=== PATIENT | female | born 1980 | race American Indian/Alaskan Native ===

== ENCOUNTER 2023-09-04 16:13 | Inpatient (IN) | payer OTHER ==
[2023-09-04 17:52] VITALS: BMI 29.7
[2023-09-04] MEDS ORDERED: BENZONATATE 200 MG CAPSULE PO PRN (22:12)
[2023-09-04] MEDS ORDERED: ACETAMINOPHEN 325 MG TABLET (FP) PO PRN (22:12)
[2023-09-04] MEDS ORDERED: POLYETHYLENE GLYCOL (HEALTHYLAX) 3350 17 GM PACKET PO PRN (22:12)
[2023-09-04] MEDS ORDERED: LOPERAMIDE HCL 2 MG CAPSULE PO PRN (22:12)
[2023-09-04] MEDS ORDERED: ONDANSETRON *ODT* 4 MG TABLET SL PRN (22:12)
[2023-09-04] MEDS ORDERED: NICOTINE POLACRILEX 2 MG GUM BUC PRN (22:12)
[2023-09-04] MEDS ORDERED: IBUPROFEN 400 MG TABLET (FP) PO PRN (22:12)
[2023-09-04] MEDS ORDERED: DICYCLOMINE HCL 10 MG CAPSULE PO PRN (22:12)
[2023-09-04] MEDS ORDERED: BISMUTH SUBSALICYLATE 524 MG/30 ML PO PRN (22:12)
[2023-09-04] MEDS ORDERED: BENZOCAINE/MENTHOL (CHLORASEPTIC ) LOZENGE MM PRN (22:12)
[2023-09-04] MEDS ORDERED: MAGNESIUM HYDROX 2400MG/30ML ORAL SUSPENSION 30 ML CUP PO PRN (22:12)
[2023-09-04] MEDS ORDERED: NALOXONE HCL (KLOXXADO) 8 MG SPRAY NS PRN (22:12)
[2023-09-04] MEDS ORDERED: MAG HYDROX/AL HYDROX/SIMETH 30 ML UNIT-DOSE CUP PO PRN (22:12)
[2023-09-04] MEDS ORDERED: NALOXONE HCL 0.4 MG/ML VIAL IM PRN (22:12)
[2023-09-04] MEDS ORDERED: P-EPHED 60MG/TRIPROLIDI 2.5MG TABLET PO PRN (22:12)
[2023-09-04] MEDS ORDERED: guaiFENesin 600 MG TABLET.ER (FP) PO PRN (22:12)
[2023-09-04] MEDS ORDERED: diazePAM 5 MG TABLET PO PRN (22:14)
[2023-09-04] MEDS ORDERED: cloNIDine HCL 0.1 MG TABLET ONE (22:27)
[2023-09-04] MEDS ORDERED: diazePAM 5 MG TABLET ONE (22:27)
[2023-09-04] MEDS ORDERED: IBUPROFEN 600 MG TABLET (FP) PO ONE (22:28)
[2023-09-04] MEDS: cloNIDine HCL 0.1 MG TABLET PO ONE (22:55)
[2023-09-04] MEDS: IBUPROFEN 600 MG TABLET (FP) PO PRN (22:56)
[2023-09-04] MEDS: diazePAM 5 MG TABLET PO SCH (23:02)
[2023-09-05] MEDS: ALBUTEROL SO4 0.083% IH SOL 2.5 MG/3 ML VIAL.NEB. NEB PRN (01:51)
[2023-09-05] MEDS: diazePAM 5 MG TABLET PO SCH (05:54)
[2023-09-05] MEDS: hydrOXYzine PAMOATE 25 MG CAPSULE (FP) PO PRN (08:09)
[2023-09-05] MEDS: METHOCARBAMOL 500 MG TABLET PO PRN (08:10)
[2023-09-05] MEDS: PRENATAL VITAMINS W/ FOLIC ACID TABLET (FP) PO SCH (10:40)
[2023-09-05] MEDS: amLODIPine BESYLATE 5 MG TABLET (FP) PO SCH (10:40)
[2023-09-05] MEDS: methaDONE HCL 40 MG DISPERSABLE TABLET PO ONE (10:40)
[2023-09-05 11:54] LABS: HEMATOCRIT 34.7 % (32.4-45.2); HEMOGLOBIN 10.9 GM/dL (10.7-15.3); MCH 22.5 pg (25.7-33.7); MCHC 31.3 g/dl (32.0-36.0); MEAN PLT VOLUME 9.1 fl (7.5-11.1); PLATELET COUNT 313 10^3/uL (134-434); RBC 4.83 M/mm3 (3.60-5.2); RDW 16.6 % (11.6-15.6); WHITE BLOOD COUNT 7.5 K/mm3 (4.0-10.0)
[2023-09-05 11:58] LABS: CHLORIDE 99 mmol/L (98-107); POTASSIUM 3.3 mmol/L (3.5-5.1); SODIUM 136 mmol/L (136-145)
[2023-09-05 12:00] LABS: BLOOD UREA NITROGEN 4.5 mg/dL (7-18); CALCIUM 9.4 mg/dL (8.5-10.1); GLUCOSE,RANDOM 105 mg/dL (74-106)
[2023-09-05 12:01] LABS: ALBUMIN 3.7 g/dl (3.4-5.0); ANION GAP 6 mmol/L (4-13); CO2 31 mmol/L (21-32)
[2023-09-05 12:04] LABS: CREATININE 0.9 mg/dL (0.55-1.3); SGOT/AST 40 U/L (15-37); SGPT/ALT 30 U/L (13-61)
[2023-09-05 12:05] LABS: BILIRUBIN,TOTAL 0.5 mg/dL (0.2-1)
[2023-09-05 12:06] LABS: ALK PHOS 53 U/L (45-117); TOT PROT 7.8 g/dl (6.4-8.2)
[2023-09-05] MEDS: cloNIDine HCL 0.1 MG TABLET PO PRN (15:37)
[2023-09-05] MEDS: MELATONIN 5 MG TABLETS PO SCH (22:16)
[2023-09-05] MEDS: THIAMINE 100 MG TABLET PO SCH (22:16)
[2023-09-06] MEDS: diazePAM 5 MG TABLET PO ONE (05:20)
[2023-09-06] MEDS: methaDONE HCL 40 MG DISPERSABLE TABLET PO SCH (05:20)
[2023-09-06] MEDS: diazePAM 5 MG TABLET PO SCH (13:44)
[2023-09-06] MEDS: POTASSIUM CHLORIDE ORAL LIQUID 20 MEQ/15 ML PO ONE ×2 (15:48→22:16)
[2023-09-07] MEDS: diazePAM 5 MG TABLET PO SCH (05:37)
[2023-09-07 14:25] VITALS: RESP 18
[2023-09-07 15:07] LABS: CALCIUM 9.1 mg/dL (8.5-10.1)
[2023-09-07 15:10] LABS: CREATININE 0.8 mg/dL (0.55-1.3)
[2023-09-07 17:07] VITALS: BP 134/78; PULSE 68; TEMP 98
[2023-09-08] MEDS ORDERED: diazePAM 5 MG TABLET PO ONE (06:00)
== END 2023-09-07 18:00 | disposition home or self-care (01) | DRG 773 ==
LOC: YASAS 16:13 → Y6N 23:22
PROVIDERS: ADMIT Allergy & Immunology; ATTEND Surgery
PROC: HZ2ZZZZ Detoxification Services for Substance Abuse Treatment (ICD-10-PCS; principal; 2023-09-04)
DX: F11.23 Opioid dependence with withdrawal (principal); F10.230 Alcohol dependence with withdrawal, uncomplicated; F12.20 Cannabis dependence, uncomplicated; F15.20 Other stimulant dependence, uncomplicated; F31.9 Bipolar disorder, unspecified; F19.280 Other psychoactive substance dependence with psychoactive substance-induced anxiety disorder; F19.282 Other psychoactive substance dependence with psychoactive substance-induced sleep disorder; E87.6 Hypokalemia; I10 Essential (primary) hypertension; J45.909 Unspecified asthma, uncomplicated; Z87.891 Personal history of nicotine dependence; Z28.310 Unvaccinated for COVID-19; Z28.9 Immunization not carried out for unspecified reason
CPT/HCPCS: 36415; 80048; 80053; 80305; 80307; 81025; 85027; 86780; 93005; 93010; 94640

== ENCOUNTER 2023-10-15 15:17 | Inpatient (IN) | payer OTHER ==
[2023-10-15 15:55] VITALS: BMI 29.3
[2023-10-15] MEDS ORDERED: NICOTINE POLACRILEX 2 MG GUM BUC PRN (16:20)
[2023-10-15] MEDS ORDERED: P-EPHED 60MG/TRIPROLIDI 2.5MG TABLET PO PRN (16:20)
[2023-10-15] MEDS ORDERED: MAG HYDROX/AL HYDROX/SIMETH 30 ML UNIT-DOSE CUP PO PRN (16:20)
[2023-10-15] MEDS ORDERED: BENZOCAINE/MENTHOL (CHLORASEPTIC ) LOZENGE MM PRN (16:20)
[2023-10-15] MEDS ORDERED: guaiFENesin 600 MG TABLET.ER (FP) PO PRN (16:20)
[2023-10-15] MEDS ORDERED: MAGNESIUM HYDROX 2400MG/30ML ORAL SUSPENSION 30 ML CUP PO PRN (16:20)
[2023-10-15] MEDS ORDERED: LOPERAMIDE HCL 2 MG CAPSULE PO PRN (16:20)
[2023-10-15] MEDS ORDERED: NALOXONE HCL 0.4 MG/ML VIAL IM PRN (16:20)
[2023-10-15] MEDS ORDERED: DOCUSATE SODIUM 100 MG CAPSULE (FP) PO PRN (16:20)
[2023-10-15] MEDS ORDERED: IBUPROFEN 600 MG TABLET (FP) PO PRN (16:20)
[2023-10-15] MEDS ORDERED: NICOTINE POLACRILEX 2 MG LOZENGE BC PRN (16:20)
[2023-10-15] MEDS ORDERED: BENZONATATE 200 MG CAPSULE PO PRN (16:20)
[2023-10-15] MEDS ORDERED: NALOXONE HCL (KLOXXADO) 8 MG SPRAY NS PRN (16:20)
[2023-10-15] MEDS ORDERED: IBUPROFEN 400 MG TABLET (FP) PO PRN (16:20)
[2023-10-15] MEDS ORDERED: POLYETHYLENE GLYCOL (HEALTHYLAX) 3350 17 GM PACKET PO PRN (16:20)
[2023-10-15] MEDS ORDERED: ALBUTEROL SO4 HFA INHALER IH PRN (16:37)
[2023-10-15] MEDS ORDERED: METOPROLOL TARTRATE 25 MG TABLET (FP) ONE (17:34)
[2023-10-15] MEDS: METOPROLOL TARTRATE 25 MG TABLET (FP) PO ONE (17:36)
[2023-10-15] MEDS: hydrOXYzine PAMOATE 25 MG CAPSULE (FP) PO PRN (21:53)
[2023-10-15] MEDS: MELATONIN 5 MG TABLETS PO SCH (21:53)
[2023-10-15] MEDS: ACETAMINOPHEN 325 MG TABLET (FP) PO PRN (21:53)
[2023-10-15] MEDS: THIAMINE 100 MG TABLET PO SCH (21:53)
[2023-10-16] MEDS: FLUTICASONE PROP 0.05% 16 GM NASAL SPRAY NS PRN (00:56)
[2023-10-16] MEDS: methaDONE HCL 40 MG DISPERSABLE TABLET PO SCH (09:19)
[2023-10-16] MEDS: PRENATAL VITAMINS W/ FOLIC ACID TABLET (FP) PO SCH (09:19)
[2023-10-16] MEDS: amLODIPine BESYLATE 2.5 MG TABLET (FP) PO SCH (09:28)
[2023-10-16 09:50] LABS: POTASSIUM 3.7 mmol/L (3.5-5.1)
[2023-10-16 09:54] LABS: ALBUMIN 3.8 g/dl (3.4-5.0)
[2023-10-16 09:57] LABS: CALCIUM 9.9 mg/dL (8.5-10.1)
[2023-10-16 09:58] LABS: BLOOD UREA NITROGEN 4.2 mg/dL (7-18)
[2023-10-16 10:00] LABS: CREATININE 0.8 mg/dL (0.55-1.3)
[2023-10-16 10:01] LABS: HEMATOCRIT 35.8 % (32.4-45.2); HEMOGLOBIN 11.5 GM/dL (10.7-15.3); MCH 22.8 pg (25.7-33.7); MCHC 32.3 g/dl (32.0-36.0); MEAN CELL VOLUME 70.6 fl (80-96); MEAN PLT VOLUME 9.3 fl (7.5-11.1); PLATELET COUNT 349 10^3/uL (134-434); RBC 5.06 M/mm3 (3.60-5.2); RDW 17.9 % (11.6-15.6); TOT PROT 8.4 g/dl (6.4-8.2); WHITE BLOOD COUNT 8.7 K/mm3 (4.0-10.0)
[2023-10-16 10:19] LABS: BILIRUBIN,TOTAL 0.3 mg/dL (0.2-1)
[2023-10-16] MEDS: amLODIPine BESYLATE 2.5 MG TABLET (FP) PO ONE (11:40)
[2023-10-16 13:40] VITALS: RESP 18; TEMP 97.5
[2023-10-17] MEDS: amLODIPine BESYLATE 5 MG TABLET (FP) PO SCH (10:21)
[2023-10-17 15:54] VITALS: BP 149/94; PULSE 101
== END 2023-10-18 10:35 | disposition left against medical advice (07) | DRG 770 ==
LOC: YASAS 15:17 → Y3NR 17:35 → Y5N 10-16 13:03
PROVIDERS: ADMIT Allergy & Immunology; ATTEND Psychiatry & Neurology Pain Medicine
PROC: HZ2ZZZZ Detoxification Services for Substance Abuse Treatment (ICD-10-PCS; principal; 2023-10-15)
DX: F10.20 Alcohol dependence, uncomplicated (principal); F11.20 Opioid dependence, uncomplicated; F14.20 Cocaine dependence, uncomplicated; F12.20 Cannabis dependence, uncomplicated; F31.9 Bipolar disorder, unspecified; I10 Essential (primary) hypertension; J45.909 Unspecified asthma, uncomplicated; Z91.148 Patient's other noncompliance with medication regimen for other reason; Z91.51 Personal history of suicidal behavior; Z28.310 Unvaccinated for COVID-19; Z56.0 Unemployment, unspecified
CPT/HCPCS: 36415; 80053; 80305; 80307; 81025; 85027; 86780; 87811